=== PATIENT | female | born 1960 | race Caucasian/White ===

== ENCOUNTER 2017-01-30 12:59 | Day surgery (SDC) | payer BC ==
[~2017-01-30] VITALS: Ht 160 cm; Wt 79.1 kg
[2017-01-30] MEDS ORDERED: RANI-347 PO (15:36)
[2017-01-30] MEDS ORDERED: MET25 PO (15:36)
[2017-01-30 15:38] VITALS: Ht 160 cm; Wt 79.1 kg
[2017-01-30 15:58] VITALS: BP 158/70; PULSE 77; RESP 15
[2017-01-30] MEDS ORDERED: FENTAnyl 50 MCG/ML VIAL ONE ×2 (16:11→16:52)
[2017-01-30] MEDS ORDERED: PROPOFOL 0 ML ONE (16:11)
--- NOTE | 2017-01-30 16:35 | OPPN ---
Date/Time of Note Date/Time of Note DATE: 01/30/17 TIME: 16:32 Proc Note GI Procedure Date 01/30/17 Indication: other (Dyspepsia) Pre-procedure Diagnosis Dyspepsia Post-procedure Diagnosis Impression: Moderate erosive esophagitis. Rule out Headley's esophagus. Biopsies obtained Small hiatal hernia. Moderate gastritis. Rule out H. pylori infection. Biopsies obtained Otherwise normal EGD. Plan: PPI therapy Review pathology. Follow-up as previously scheduled . Procedure Performed: Endoscopy (With biopsies) Surgeon DAVID FRANKLIN MD See signature line Lab Aide none Anesthesia Type: moderate sedation (Versed 6 mg/fentanyl 100 mcg) Tourniquet Time none EBL none Transfusion required none Biopsy 1: Gastric body and antrum/rule out H. pylori infection Biopsy 2: Distal esophagus./Rule out Headley's esophagus. Grafts/Implants none Tubes/Drains none Complication(s) none Disposition: home Procedure Description Preoperative Diagnosis: After informed consent, with the patient/relatives understanding the procedure, its indications, potential risks and complications, including but not limited to : allergic reaction, bleeding, perforation or infection, and after all pertinent questions were answered to the patients satisfaction, the patient/ relatives signed witnessed informed consent. Following this, premedication was administered slowly IV push under careful cardiovascular and respiratory monitoring with pulse oximetry, automatic blood pressure, and blood bank calendar control clerk. Once the sedative effect was achieved the patient was place in the left lateral decubitus, the panendoscope was introduced and advanced under visual control. Careful examination of the upper gastrointestinal tract, both on insertion as well as withdrawal of the instrument disclosing the following findings: ESOPHAGUS: the mucosa of the entire esophagus was carefully examined and showed the following findings: There is erythema, edema as well as erosions of the mucosa at the esophagogastric junction. The esophagogastric junction is approximately displaced at least 1 cm. Biopsies were obtained to rule out Headley's esophagus. Otherwise the mucosa appears within normal limits. There is no evidence of varices, neoplasm, or stricture. Small Hiatal Hernia identified. STOMACH: Upon entrance to the stomach air was insufflated, the gastric toribio distended normally. The mucosa of the fundus, body and antrum of the stomach was carefully examined both head-on and on retroflexion, and showed the following findings: There is moderate erythema and edema because of the body and antrum the stomach. Biopsies were obtained to rule out H. pylori infection. Otherwise the mucosa appears within normal limits with no abnormalities. There is no evidence of ulcers or neoplasm. PYLORUS: The pylorus was carefully examined and showed the following findings: the pylorus appears patent and within normal limits, with no evidence of gastric outlet obstruction. DUODENUM: The duodenal mucosa was carefully examined in the duodenal bulb as well as the second portion of the duodenum and showed the following findings: the mucosa appears unremarkable with no evidence of duodenitis, ulcer or neoplasm. Copies To: CC: DAVID FRANKLIN MD, MORDO MD Jan 30, 2017 16:35
[2017-01-30] MEDS ORDERED: MIDAZOLAM 1 MG/ML 2 ML INJ ONE ×3 (16:51)
[2017-01-30 17:02] VITALS: BP 138/83; RESP 14
== END 2017-01-30 21:34 | disposition home or self-care (01) ==
LOC: GIL 12:59
PROVIDERS: ATTEND Internal Medicine Gastroenterology
DX: Z12.11 Encounter for screening for malignant neoplasm of colon (principal); K29.50 Unspecified chronic gastritis without bleeding; K21.0 Gastro-esophageal reflux disease with esophagitis
CPT/HCPCS: 43239; 88305; 88312; 88313; J2250; J3010; Z7610